=== PATIENT | male | born 1955 | race Caucasian/White ===

== ENCOUNTER 2020-01-04 10:53 | Inpatient (IN) ==
[2020-01-04] MEDS ORDERED: HEPARIN SOD (PORCINE) 1000 UNIT/ML 10 ML VIAL IV ONE (11:17)
[2020-01-04] MEDS ORDERED: SODIUM CHLORIDE 0.9% 1000ML 1,000 ML IV PRN (11:17)
--- NOTE | 2020-01-04 11:24 | Emergency Department Note ---
Impression & Plan Bilateral lower extremity edema, Renal failure, Acute hyperkalemia ED Provider Note NAME: PELON MA AGE: 64 SEX: M : 1955 ARRIVES VIA: Walk-In INFORMANT: Patient, ED PROVIDER(S): Abhijit Guerra DO CHIEF COMPLAINT: Edema HPI: The patient is a 64-year-old male who presented to the emergency department for an evaluation of lower extremity edema. The patient has a history of end- stage renal disease. He has been noncompliant with his dialysis regimen. The patient presented to the emergency department at the request of his primary fisheries technician today because of ongoing worsening swelling in the legs and also questionable social situation at home. The patient was recommended by his fisheries technician to have daily dialysis for at least the next 3 to 4 days and then significant consideration for the patient being placed. Currently the patient does complain of cough. He does smoke 2 packs a day. He denies having any hemoptysis. He has no fever. He does complain of lower extremity edema as well as orthopnea. He also complains of dyspnea on exertion. Currently denies having any chest pain. He does still make urine "every couple days". He denies having any vomiting. ROS: See above HPI for pertinent positives & negatives. A total of 10 systems reviewed and were otherwise negative. PAST MEDICAL HISTORY: See Below PAST SURGICAL HISTORY: See Below FAMILY HISTORY: See Below SOCIAL HISTORY: See Below HOME MEDICATIONS: See Below ALLERGIES: See Below VITALS: See Below PHYSICAL EXAMINATION: GENERAL: The patient is frail appearing. He does not appear to be caring for himself. EYES: The conjunctivae are clear. The pupils are round and reactive. EARS, NOSE, MOUTH AND THROAT: The nose is without any evidence of any deformity. Mucous membranes are moist. Tongue is midline. NECK: The neck is nontender and supple. RESPIRATORY: Shallow respirations were noted. There are rales in the right lower extremity. Left lung was somewhat diminished CARDIOVASCULAR: Regular rate and rhythm noted there no murmurs rubs or gallops normal S1 normal S2. GASTROINTESTINAL: The abdomen is soft. Abdomen is nontender. MUSCULOSKELETAL/EXTREMITIES: There is no evidence of gross deformity full range of motion is noted in the hips and shoulders. SKIN: Skin was warm and dry. There was pedal edema bilaterally. NEUROLOGIC: Patient is awake alert and oriented x3. MEDICAL DECISION MAKING: The patient is a 64-year-old male who presented to the emergency department for an evaluation of lower extremity edema. The patient has a history of end-stage renal disease and has a history of dialysis. He was seen by his primary fisheries technician yesterday and had dialysis but they feel as though the patient has not doing well as an outpatient and may require an inpatient stay for daily dialysis. The patient himself was complaining of some difficulty breathing and lower extremity edema. On physical exam he does have rales throughout and I feel he is consistent with volume overload. I discussed the patient's laboratory and radiographic studies with him. [facility] They will evaluate the patient in the emergency department for further management and disposition. If we can get the patient in for dialysis today that would be ideal. The fisheries technician did call about the patient and states that they are familiar with him and the inpatient on-call fisheries technician is also aware that the patient is to be admitted. Triage Nursing notes reviewed. Prior medical records reviewed Vital Signs: reviewed and remarkable for no significant abnormalities Differential diagnosis: Infection, dehydration, metabolic abnormality, hypo/hyperglycemia, electrolyte disturbance, anemia, hypoxia, cardiac sources, intracerebral event, toxicologic, neurologic, as well as other pathologies. ER treatment provided: See below Diagnostics interpreted by me: ECG: EKG was obtained in the emergency department. My interpretation is normal sinus rhythm at 61 bpm. LVH was noted by voltage criteria. There is no ectopy. There was no change compared to a tracing done on January 03, 2020. Cardiac Monitoring: An order was placed for continuous cardiac monitoring. The monitor shows a rate of 82 bpm with sinus rhythm. Laboratory studies: As stated above and show below. Imaging studies: See below Consultation(s): 1120: I discussed this case with Ana who [facility] They will evaluate the patient in the emergency department for further management and disposition. Past Med/Surg History Medical History (Updated 01/04/20 @ 16:17 by Abhijit Guerra DO) Anemia Bilateral lower extremity edema Chronic back pain Chronic deep vein thrombosis (DVT) of calf muscle vein of left lower extremity not on eliquis anymore, stopped 09/2019 after aneusym rupture/repair, now on plavix ESRD on dialysis Hepatitis C not receiving treatment History of tobacco abuse History of traumatic brain injury Hypertension Seizure disorder Surgical History (Updated 01/04/20 @ 13:02 by Ana Romo PA-C) History of amputation of finger Chainsaw accident History of appendectomy History of fracture of left hip s/p ORIF 04/10/2019 History of repair of aneurysm of abdominal aorta using endovascular stent graft Dr. Javier took him to the OR urgently, underwent open exposure of right common femoral artery, open exposure left axillary artery, celiac artery stenting, superior mesenteric artery stenting, vascular embolization or occlusion, right internal iliac artery, extension of previous infrarenal aortic stent graft (I.e. delayed extension of EVAR) into right external iliac artery, and placement of tunneled dialysis catheter left common femoral vein on 09/17/[address] 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 History of sinus surgery Family History (Updated 01/04/20 @ 13:07 by Ana Romo PA-C) Mother Diabetes Father Coronary heart disease Other AAA (abdominal aortic aneurysm) Social History (Updated 01/04/20 @ 13:06 by Ana Romo PA-C) Smoking Status: Current every day smoker Tobacco Type: Cigarettes packs per day: 2; Years Smoked: 50; Cigarettes Per Day: 40; Hx Alcohol Use: Yes Alcohol Intake Frequency Comment: Currently abstinent of alcohol Hx Substance Use: Yes Preferred Language: Martiniquais Communication Ability: Effective Heel Sprayer First Required: No Beliefs That Will Affect Care: None Current Living Situation: Family Current Living Situation Comment: lives with brother and sister Other Information That Helps Us Care for You: No Feels Safe at Home: Yes Safety Concerns: Feels Safe At This Time Assistive Devices: None Allergies Allergies Allergy/AdvReac Type Severity Reaction Status Date / Time thiopental [From Pentothal] Allergy Severe Seizure Verified 01/04/20 14:10 Home Meds Home Medications Medication Instructions Recorded Confirmed B complex with C 20-folic acid 1 cap PO HS 01/03/20 01/04/20 [Wai Caps] amlodipine See Rx Instructions .ROUTE .COMPLEX 01/03/20 01/04/20 carvedilol 50 mg PO BID 01/03/20 01/04/20 clonidine HCl 0.3 mg PO Q12H 01/03/20 01/04/20 clopidogrel [Plavix] 75 mg PO QAM 01/03/20 01/04/20 ergocalciferol (vitamin D2) 1,250 mcg PO WK 01/03/20 01/04/20 [Vitamin D2] hydralazine 25 mg PO BID 01/03/20 01/04/20 levetiracetam [Keppra] 1,000 mg PO QDD 01/03/20 01/04/20 losartan 100 mg PO DAILY 01/03/20 01/04/20 phenytoin sodium extended 300 mg PO BID 01/03/20 01/04/20 [Dilantin Extended] rosuvastatin 40 mg PO QDD 01/03/20 01/04/20 sevelamer HCl 800 mg PO TIDM 01/03/20 01/04/20 Results & Data (ED) Vital Signs Vital Signs - 24 hr 01/04/20 10:59 01/04/20 11:15 01/04/20 11:17 Temperature 36.9 C Temperature Source Oral Pulse Rate 73 64 62 Pulse Rate from SpO2 Sensor 65 62 Pulse Rhythm Regular Pulse Strength Normal Respiratory Rate 20 17 23 Respiratory Effort / Characteristics Non-Labored Spontaneous Respiratory Depth Normal Respiratory Pattern Regular Blood Pressure 120/71 107/62 Blood Pressure Mean 87 66 Blood Pressure Position Sitting Pulse Oximetry 95 98 96 Oxygen Delivery Method Room Air Room Air Sepsis Recent Fever Within 48 Hours No Sepsis New/Unexplained Change in Mental Status No Sepsis Action Taken by Nursing No Action Required 01/04/20 11:20 01/04/20 11:30 Temperature Temperature Source Pulse Rate 64 62 Pulse Rate from SpO2 Sensor 63 62 Pulse Rhythm Pulse Strength Respiratory Rate 17 18 Respiratory Effort / Characteristics Respiratory Depth Respiratory Pattern Blood Pressure 124/72 Blood Pressure Mean 90 Blood Pressure Position Pulse Oximetry 97 96 Oxygen Delivery Method Sepsis Recent Fever Within 48 Hours Sepsis New/Unexplained Change in Mental Status Sepsis Action Taken by Care Home Medications Current Medication List: was personally reviewed by me Laboratory Data Attestation: I reviewed the patient's lab results. Result diagrams: 01/04/20 11:27 01/04/20 11:27 Lab Results 01/04/20 01/04/20 01/04/20 Range/Units 11:27 11:27 11:27 WBC 7.29 (4.8-10.8) K/uL RBC 2.63 L (4.7-6.1) M/uL Hgb 8.7 L (14.0-18.0) g/dL Hct 25.6 L (42-52) % MCV 97.3 (80-100) fL MCH 33.1 (25-34) pg MCHC 34.0 (32-36) g/dL RDW Std Deviation 52.1 H (36.4-46.3) fL RDW Coeff of Afsaneh 15.0 H (11.5-14.5) % Plt Count 146 (130-400) K/uL MPV 9.2 (7.4-10.4) fL Immature Gran % (Auto) 0.3 % Neut % (Auto) 63.2 % Lymph % (Auto) 18.0 % [place] % (Auto) 13.3 % Eos % (Auto) 4.5 % Baso % (Auto) 0.7 % Neut # (Auto) 4.61 (1.4-6.5) K/uL Lymph # (Auto) 1.31 (1.2-3.4) K/uL [place] # (Auto) 0.97 H (0.11-0.59) K/uL Eos # (Auto) 0.33 (0-0.5) K/uL Baso # (Auto) 0.05 (0-0.2) K/uL Immature Gran # (Auto) 0.02 (0.00-0.02) K/uL PT 12.6 H (9.0-12.0) Seconds INR 1.2 H (0.9-1.1) Sodium 137 (136-145) mmol/L Potassium 5.2 H D (3.5-5.1) mmol/L Chloride 102 (98-107) mmol/L Carbon Dioxide 26 (21-32) mmol/L Anion Gap 9.0 (3-11) BUN 46 H (7-18) mg/dl Creatinine 5.16 H* D (0.6-1.4) mg/dl Est Cr Clr Drug Dosing 13.5 ml/min Est GFR ( Amer) 12.7 Est GFR (Non-Af Amer) 11.0 BUN/Creatinine Ratio 8.9 L (10-20) Glucose 93 (70-99) mg/dl Calcium 8.9 (8.5-10.1) mg/dl Magnesium 1.9 (1.8-2.4) mg/dl Total Bilirubin 0.3 (0.2-1) mg/dl AST 23 (15-37) U/L ALT 23 (12-78) U/L Alkaline Phosphatase 115 (45-117) U/L Troponin I < 0.015 (0-0.045) ng/ml Total Protein 6.5 (6.4-8.2) gm/dl Albumin 2.5 L (3.4-5.0) gm/dl Globulin 4.0 (2.5-4.0) gm/dl Albumin/Globulin Ratio 0.6 L (0.9-2) TSH 1.700 (0.300-4.500) uIu/ml Phenytoin (10-20) mcg/ml 01/04/20 Range/Units 11:27 WBC (4.8-10.8) K/uL RBC (4.7-6.1) M/uL Hgb (14.0-18.0) g/dL Hct (42-52) % MCV (80-100) fL MCH (25-34) pg MCHC (32-36) g/dL RDW Std Deviation (36.4-46.3) fL RDW Coeff of Afsaneh (11.5-14.5) % Plt Count (130-400) K/uL MPV (7.4-10.4) fL Immature Gran % (Auto) % Neut % (Auto) % Lymph % (Auto) % [place] % (Auto) % Eos % (Auto) % Baso % (Auto) % Neut # (Auto) (1.4-6.5) K/uL Lymph # (Auto) (1.2-3.4) K/uL [place] # (Auto) (0.11-0.59) K/uL Eos # (Auto) (0-0.5) K/uL Baso # (Auto) (0-0.2) K/uL Immature Gran # (Auto) (0.00-0.02) K/uL PT (9.0-12.0) Seconds INR (0.9-1.1) Sodium (136-145) mmol/L Potassium (3.5-5.1) mmol/L Chloride (98-107) mmol/L Carbon Dioxide (21-32) mmol/L Anion Gap (3-11) BUN (7-18) mg/dl Creatinine (0.6-1.4) mg/dl Est Cr Clr Drug Dosing ml/min Est GFR ( Amer) Est GFR (Non-Af Amer) BUN/Creatinine Ratio (10-20) Glucose (70-99) mg/dl Calcium (8.5-10.1) mg/dl Magnesium (1.8-2.4) mg/dl Total Bilirubin (0.2-1) mg/dl AST (15-37) U/L ALT (12-78) U/L Alkaline Phosphatase (45-117) U/L Troponin I (0-0.045) ng/ml Total Protein (6.4-8.2) gm/dl Albumin (3.4-5.0) gm/dl Globulin (2.5-4.0) gm/dl Albumin/Globulin Ratio (0.9-2) TSH (0.300-4.500) uIu/ml Phenytoin 19.9 (10-20) mcg/ml Administered Medications Heparin Sodium (Porcine) (Heparin Sod 5,000 Unit/0.5 Ml Vial) 5,000 units SQ Q8 NIELS Stop: 02/03/20 14:02 Last Admin: 01/04/20 14:51 Dose: Not Given Documented by: [id number] Imaging Data Radiologist's Impression: XR chest 1V portable CLINICAL HISTORY: weakness COMPARISON STUDY: 12/26/2019 FINDINGS: The patient remains hyperinflated. The heart is normal in size. There is aortic tortuosity/ectasia. There is a right-sided central venous catheter. There is no evidence of focal pulmonary consolidation. There is mild interstitial prominence without evidence of overt failure.[ IMPRESSION: 1. No evidence of focal pulmonary consolidation 2. Very subtle diffuse interstitial prominence. This could be secondary to chronic interstitial lung disease, an interstitial inflammatory process, or subtle pulmonary vascular congestion. ACT 112: Negative or not required by law. Electronically signed by: Josh Mcdonald M.D. 01/04/2020 11:44 AM Dictated: 01/04/20 1142 Transcribed: 01/04/20 1142 Blood Pressure Blood Pressure Findings: Normal blood pressure Discharge Plan Visit Data Chief Complaint: Leg Injury/Pain Stated Complaint: LEG PAIN IN BOTH LEGS ED Provider: Charlie,Abhijit R Discharge Problem: Bilateral lower extremity edema, Renal failure, Acute hyperkalemia Patient Disposition: Admitted As Inpatient Condition: Good Discharge Instructions Interventions: ED Discharge Assessment Last Done: 01/04/20 12:39 Discharge Problem: Renal failure Qualifiers: Renal failure chronicity: chronic Chronic kidney disease stage: on chronic dialysis Qualified Code(s): N18.6 - End stage renal disease
[2020-01-04 11:42] LABS: Basophils # (auto) 0.05 K/uL (0-0.2); Basophils % (auto) 0.7 %; Eosinophils # (auto) 0.33 K/uL (0-0.5); Eosinophils % (auto) 4.5 %; Hematocrit (blood only) 25.6 % (42-52); Hemoglobin 8.7 g/dL (14.0-18.0); Immature Granulocytes # (auto) 0.02 K/uL (0.00-0.02); Immature Granulocytes % (auto) 0.3 %; Lymphocytes # (auto) 1.31 K/uL (1.2-3.4); Mean Corpuscular Hemoglobin 33.1 pg (25-34); Mean Corpuscular Volume 97.3 fL (80-100); Mean Platelet Volume 9.2 fL (7.4-10.4); Monocytes # (auto) 0.97 K/uL (0.11-0.59); Monocytes % (auto) 13.3 %; Neutrophils # (auto) 4.61 K/uL (1.4-6.5); Neutrophils % (auto) 63.2 %; Platelet Count 146 K/uL (130-400); RDW Standard Deviation 52.1 fL (36.4-46.3); Red Blood Count 2.63 M/uL (4.7-6.1); White Blood Count 7.29 K/uL (4.8-10.8)
--- NOTE | 2020-01-04 11:45 | XRay Report ---
XR chest 1V portable CLINICAL HISTORY: weakness COMPARISON STUDY: 12/26/2019 FINDINGS: The patient remains hyperinflated. The heart is normal in size. There is aortic tortuosity/ ectasia. There is a right-sided central venous catheter. There is no evidence of focal pulmonary cons olidation. There is mild interstitial prominence without evidence of overt failure.[ IMPRESSION: 1. No evidence of focal pulmonary consolidation 2. Very subtle diffuse interstitial prominence. This could be secondary to chronic interstitial lung disease, an interstitial inflammatory process, or subtle pulmonary vascular congestion. ACT 112: Negative or not required by law. Electronically signed by: Josh Mcdonald M.D. 01/04/2020 11:44 AM
[2020-01-04 11:52] LABS: INR 1.2 (0.9-1.1); Prothrombin Time 12.6 Seconds (9.0-12.0)
[2020-01-04 12:18] LABS: Alanine Aminotransferase 23 U/L (12-78); Albumin Globulin Ratio 0.6 (0.9-2); Albumin Level 2.5 gm/dl (3.4-5.0); Alkaline Phosphatase 115 U/L (45-117); Aspartate Aminotransferase 23 U/L (15-37); BUN Creatinine Ratio 8.9 (10-20); Bilirubin,Total 0.3 mg/dl (0.2-1); Blood Urea Nitrogen 46 mg/dl (7-18); Calcium 8.9 mg/dl (8.5-10.1); Carbon Dioxide 26 mmol/L (21-32); Chloride 102 mmol/L (98-107); Creatinine Clr Calc Pharmacy 13.5 ml/min; Est GFR (African American) 12.7; Glucose 93 mg/dl (70-99); Magnesium 1.9 mg/dl (1.8-2.4); Potassium 5.2 mmol/L (3.5-5.1); Sodium 137 mmol/L (136-145); Total Protein 6.5 gm/dl (6.4-8.2); Troponin I < 0.015 ng/ml (0-0.045)
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
[2020-01-04] MEDS ORDERED: ACETAMINOPHEN 325 MG TAB PO PRN (14:03)
[2020-01-04] MEDS ORDERED: POLYETHYLENE (MIRALAX) 17 GM PACK PO PRN (14:03)
[2020-01-04] MEDS ORDERED: ONDANSETRON INJ 2 MG/ML 2 ML VIAL IV PRN (14:03)
[2020-01-04] MEDS: HEPARIN SOD 5,000 UNIT/0.5 ML VIAL SQ SCH ×2 (14:51→21:52)
[2020-01-04] MEDS: HEPARIN SOD (PORCINE) 1000 UNIT/ML 10 ML VIAL IV SCH ×3 (15:40→16:19)
[2020-01-04] MEDS: SEVELAMER HCL 800 MG TABLET PO SCH (17:09)
[2020-01-04] MEDS: ROSUVASTATIN CALCIUM 20 MG TAB PO SCH (17:09)
[2020-01-04] MEDS: levETIRAcetam 500 MG TAB PO SCH (17:09)
[2020-01-04] MEDS: cloNIDine HCL 0.3 MG TAB PO SCH (20:18)
[2020-01-04] MEDS: carvediloL 25 MG TAB PO SCH (20:18)
[2020-01-04] MEDS: PHENYTOIN SODIUM ER 100 MG CAP PO SCH (20:18)
[2020-01-04] MEDS: NEPHROCAPS PO SCH (20:18)
[2020-01-05] MEDS: HEPARIN SOD 5,000 UNIT/0.5 ML VIAL SQ SCH ×3 (05:48→20:38)
--- NOTE | 2020-01-05 06:01 | Electrocardiogram Report ---
Test Reason : Blood Pressure : / mmHG Vent. Rate : 061 BPM Atrial Rate : 061 BPM P-R Int : 140 ms QRS Dur : 090 ms QT Int : 476 ms P-R-T Axes : 070 053 072 degrees QTc Int : 479 ms Normal sinus rhythm When compared with ECG of 03-JAN-2020 16:31, No significant change Confirmed by Arvind Cullen ([id number]) on 01/05/2020 6:01:32 AM Referred By: Confirmed By:Arvind Cullen
[2020-01-05 06:39] LABS: Hematocrit (blood only) 24.5 % (42-52); Hemoglobin 8.2 g/dL (14.0-18.0); Mean Corpuscular Hemoglobin 32.7 pg (25-34); Mean Corpuscular Hgb Conc 33.5 g/dL (32-36); Mean Corpuscular Volume 97.6 fL (80-100); Platelet Count 121 K/uL (130-400); RDW Standard Deviation 52.8 fL (36.4-46.3); Red Blood Count 2.51 M/uL (4.7-6.1)
[2020-01-05 07:32] LABS: BUN Creatinine Ratio 7.7 (10-20); Calcium 8.6 mg/dl (8.5-10.1); Creatinine Clr Calc Pharmacy 15.6 ml/min; Est GFR (African American) 13.6; Est GFR (Non-African American) 11.7; Magnesium 1.7 mg/dl (1.8-2.4); Potassium 4.7 mmol/L (3.5-5.1)
[2020-01-05] MEDS ORDERED: SODIUM CHLORIDE 0.9% 1000ML 1,000 ML IV PRN (07:56)
[2020-01-05] MEDS ORDERED: EPOETIN ALFA 20,000 UNITS/ML VIAL IV SCH (07:56)
[2020-01-05] MEDS ORDERED: HEPARIN SOD (PORCINE) 1000 UNIT/ML 10 ML VIAL IV SCH (07:56)
[2020-01-05] MEDS: SEVELAMER HCL 800 MG TABLET PO SCH ×3 (08:30→17:01)
[2020-01-05] MEDS: cloNIDine HCL 0.3 MG TAB PO SCH ×2 (08:34→20:38)
[2020-01-05] MEDS: carvediloL 25 MG TAB PO SCH ×2 (08:34→20:36)
[2020-01-05 09:11] LABS: Phosphorus 4.3 mg/dl (2.5-4.9)
[2020-01-05] MEDS: HEPARIN SOD (PORCINE) 1000 UNIT/ML 10 ML VIAL IV SCH ×3 (10:00→12:00)
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
[2020-01-05] MEDS: LOSARTAN POTASSIUM 50 MG TAB PO SCH (13:23)
[2020-01-05] MEDS: CLOPIDOGREL BISULFATE 75 MG TAB PO SCH (13:23)
[2020-01-05] MEDS: PHENYTOIN SODIUM ER 100 MG CAP PO SCH ×2 (13:23→20:37)
[2020-01-05] MEDS: AMLODIPINE BESYLATE 5 MG TAB PO SCH (13:24)
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
[2020-01-05] MEDS: levETIRAcetam 500 MG TAB PO SCH (17:01)
[2020-01-05] MEDS: ROSUVASTATIN CALCIUM 20 MG TAB PO SCH (17:01)
--- NOTE | 2020-01-05 20:09 | Dialysis Progress Note ---
Date of Service January 05, 2020 Assessment & Plan (1) ESRD on dialysis: ESRD on MWF HD at [place]; needs longer txs and daily dialysis to optimize volume . chemistries ok -daily HD > had HD yesterday and today; plan tomorrow as well; tolerated 4L off todaay -cont dialysis diet -pls eval for rehab and or placement >> concerns about family's ability to care for pt expressed at dialysis unit (2) Volume overload: daliy dialysis for moment; -teaching about FR -follow bp/ exam to determin vol status (3) Anemia due to end stage renal disease: got epo today; monitor q 48 hrs hgb Admission and Anticipated Discharge Date Admission Date: January 04, 2020 Subjective seen on dialysis at about 0940; tolerating tx well. thick cough, he states chronic; edema better Review of Systems Review of Systems: All systems reviewed & are unremarkable except as noted in HPI & below Physical Exam Constitutional: well developed, + thin, + disheveled, cooperative and + malnourished Eyes: EOM intact bilaterally ENMT: Ears: no external ear abnormality Nose: no external nose abnormality Mouth: + dry oral mucous membranes Neck: no nuchal rigidity Respiratory: normal respiratory effort and + cough (thick) Auscultation: + diminished lung sounds and + rhonchi Cardiovascular: Rate/Rhythm: regular rate and regular rhythm Extremities: + edema (1-2+) Gastrointestinal (Abdomen): Inspection/Auscultation: normal bowel sounds Percussion/Palpation: abdomen soft; abdomen nontender Musculoskeletal: Extremities: strength 5/5 throughout Skin: no rashes, warm and dry + nail abnormality (clubbing) Psychiatric: Orientation: alert and oriented x 3 Speech: normal rate/rhythm/volume of speech Affect: + flat affect Insight: + limited i nsight Judgement: + limited judgement Results & Data ([place]) Vital Signs (Past 12 Hours) Vital Signs Temp Pulse Pulse Pulse Resp BP BP 01/05/20 18:58 37.4 C 76 20 166/85 H 01/05/20 16:36 36.7 C 76 18 165/83 H 01/05/20 16:00 86 01/05/20 13:40 37.1 C 76 175/99 H 01/05/20 12:40 66 181/103 H 01/05/20 12:20 78 176/94 H 01/05/20 12:00 82 171/97 H 01/05/20 11:40 73 167/111 H 01/05/20 11:20 66 171/106 H 01/05/20 11:00 70 184/95 H 01/05/20 10:40 70 163/102 H 01/05/20 10:20 74 166/96 H 01/05/20 10:00 75 167/82 H 01/05/20 09:40 77 162/81 H 01/05/20 09:20 76 173/92 H 01/05/20 09:03 76 180/93 H 01/05/20 08:56 37.3 C 81 Pulse Ox 01/05/20 18:58 93 01/05/20 16:36 93 01/05/20 16:00 01/05/20 13:40 01/05/20 12:40 01/05/20 12:20 01/05/20 12:00 01/05/20 11:40 01/05/20 11:20 01/05/20 11:00 01/05/20 10:40 01/05/20 10:20 01/05/20 10:00 01/05/20 09:40 01/05/20 09:20 01/05/20 09:03 01/05/20 08:56 (1) Volume overload Hypervolemia type: other Qualified Code(s): E87.79 - Other fluid overload
[2020-01-05] MEDS: NEPHROCAPS PO SCH (20:37)
[2020-01-06] MEDS: HEPARIN SOD 5,000 UNIT/0.5 ML VIAL SQ SCH ×3 (06:11→22:23)
[2020-01-06] MEDS: PHENYTOIN SODIUM ER 100 MG CAP PO SCH ×2 (08:00→20:32)
[2020-01-06] MEDS: CLOPIDOGREL BISULFATE 75 MG TAB PO SCH (08:01)
[2020-01-06] MEDS: AMLODIPINE BESYLATE 5 MG TAB PO SCH (08:01)
[2020-01-06] MEDS: cloNIDine HCL 0.3 MG TAB PO SCH ×2 (08:02→20:32)
[2020-01-06] MEDS: SEVELAMER HCL 800 MG TABLET PO SCH ×3 (08:02→16:41)
[2020-01-06] MEDS: carvediloL 25 MG TAB PO SCH ×2 (08:02→20:43)
[2020-01-06] MEDS: LOSARTAN POTASSIUM 50 MG TAB PO SCH (08:02)
[2020-01-06 08:12] LABS: Hematocrit (blood only) 26.1 % (42-52); Hemoglobin 8.7 g/dL (14.0-18.0); Mean Corpuscular Hemoglobin 32.2 pg (25-34); Mean Corpuscular Hgb Conc 33.3 g/dL (32-36); Mean Corpuscular Volume 96.7 fL (80-100); RDW Coefficient of Variation 14.9 % (11.5-14.5); RDW Standard Deviation 52.1 fL (36.4-46.3); White Blood Count 8.06 K/uL (4.8-10.8)
[2020-01-06 08:21] LABS: Basophils # (auto) 0.06 K/uL (0-0.2); Basophils % (auto) 0.7 %; Eosinophils # (auto) 0.49 K/uL (0-0.5); Eosinophils % (auto) 6.1 %; Immature Granulocytes # (auto) 0.01 K/uL (0.00-0.02); Immature Granulocytes % (auto) 0.1 %; Lymphocytes # (auto) 1.77 K/uL (1.2-3.4); Lymphocytes % (auto) 21.9 %; Mean Platelet Volume 9.4 fL (7.4-10.4); Monocytes # (auto) 1.09 K/uL (0.11-0.59); Monocytes % (auto) 13.5 %; Neutrophils # (auto) 4.66 K/uL (1.4-6.5); Neutrophils % (auto) 57.7 %; Platelet Count 103 K/uL (130-400)
[2020-01-06] MEDS ORDERED: HEPARIN SOD (PORCINE) 1000 UNIT/ML 10 ML VIAL IV ONE (08:37)
[2020-01-06] MEDS ORDERED: SODIUM CHLORIDE 0.9% 1000ML 1,000 ML IV PRN (08:37)
[2020-01-06 08:41] LABS: BUN Creatinine Ratio 7.1 (10-20); Calcium 9.3 mg/dl (8.5-10.1); Creatinine Clr Calc Pharmacy 17.4 ml/min; Est GFR (African American) 15.7; Est GFR (Non-African American) 13.6; Magnesium 1.9 mg/dl (1.8-2.4); Potassium 4.1 mmol/L (3.5-5.1)
[2020-01-06 08:42] LABS: Phosphorus 3.9 mg/dl (2.5-4.9)
[2020-01-06] MEDS: HEPARIN SOD (PORCINE) 1000 UNIT/ML 10 ML VIAL IV SCH ×2 (10:40→12:48)
--- NOTE | 2020-01-06 12:54 | Dialysis Progress Note ---
Date of Service January 06, 2020 Assessment & Plan (1) ESRD on dialysis: ESRD on MWF HD at [place]; needs longer txs and daily dialysis to optimize volume . chemistries ok -daily HD > plan tomorrow as well; tolerated 4L off yesterday; had bp meds this am >> will aim for 3L off as BP tolerates today -cont dialysis diet -pls eval for rehab and or placement >> concerns about family's ability to care for pt expressed at dialysis unit (2) Volume overload: daliy dialysis for moment; -teaching about FR -follow bp/ exam to determin vol status (3) Anemia due to end stage renal disease: got epo today; monitor q 48 hrs hgb Admission and Anticipated Discharge Date Admission Date: January 04, 2020 Subjective no c/o uncontrolled pain; ongoing cough; edema improving; no sob, no n/v Review of Systems Review of Systems: All systems reviewed & are unremarkable except as noted in HPI & below Physical Exam Constitutional: well developed, + thin, + disheveled, cooperative and + malnourished Eyes: EOM intact bilaterally ENMT: Ears: no external ear abnormality Nose: no external nose abnormality Mouth: + dry oral mucous membranes Neck: no nuchal rigidity Respiratory: normal respiratory effort and + cough (thick) Auscultation: + diminished lung sounds and + rhonchi Cardiovascular: Rate/Rhythm: regular rate and regular rhythm Extremities: + edema (trace -1+) Gastrointestinal (Abdomen): Inspection/Auscultation: normal bowel sounds Percussion/Palpation: abdomen soft; abdomen nontender Musculoskeletal: Extremities: strength 5/5 throughout Skin: no rashes, warm and dry + nail abnormality (clubbing) Psychiatric: Orientation: alert and oriented x 3 Speech: normal rate/rhy thm/volume of speech Affect: + flat affect Insight: + limited insight Judgement: + limited judgement Results & Data ([facility]) Vital Signs (Past 12 Hours) Vital Signs Temp Pulse Pulse Pulse Resp BP BP 01/06/20 12:07 37.1 C 69 121/65 01/06/20 11:20 69 108/68 01/06/20 11:00 73 106/62 01/06/20 10:40 80 115/64 01/06/20 10:20 69 123/63 01/06/20 10:00 72 117/65 01/06/20 09:40 71 131/69 01/06/20 09:20 74 116/63 01/06/20 09:14 36.5 C 90 01/06/20 07:08 65 01/06/20 03:35 36.5 C 71 20 167/85 H Pulse Ox 01/06/20 12:07 01/06/20 11:20 01/06/20 11:00 01/06/20 10:40 01/06/20 10:20 01/06/20 10:00 01/06/20 09:40 01/06/20 09:20 01/06/20 09:14 01/06/20 07:08 01/06/20 03:35 92 Laboratory Results 01/06/20 07:53 01/06/20 07:53 (1) Volume overload Hypervolemia type: other Qualified Code(s): E87.79 - Other fluid overload
[2020-01-06] MEDS: ROSUVASTATIN CALCIUM 20 MG TAB PO SCH (16:40)
[2020-01-06] MEDS: levETIRAcetam 500 MG TAB PO SCH (16:40)
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
[2020-01-06] MEDS: NEPHROCAPS PO SCH (20:33)
[2020-01-07] MEDS: HEPARIN SOD 5,000 UNIT/0.5 ML VIAL SQ SCH ×3 (05:23→20:12)
[2020-01-07] MEDS ORDERED: SODIUM CHLORIDE 0.9% 1000ML 1,000 ML IV PRN (07:37)
[2020-01-07] MEDS ORDERED: HEPARIN SOD (PORCINE) 1000 UNIT/ML 10 ML VIAL IV ONE (07:37)
[2020-01-07] MEDS ORDERED: EPOETIN ALFA 20,000 UNITS/ML VIAL IV ONE (08:00)
[2020-01-07] MEDS: CLOPIDOGREL BISULFATE 75 MG TAB PO SCH (09:07)
[2020-01-07] MEDS: PHENYTOIN SODIUM ER 100 MG CAP PO SCH ×2 (09:07→20:11)
[2020-01-07] MEDS: SEVELAMER HCL 800 MG TABLET PO SCH ×3 (09:07→17:29)
--- NOTE | 2020-01-07 10:25 | Dialysis Progress Note ---
Date of Service January 07, 2020 Assessment & Plan (1) ESRD on dialysis: ESRD on MWF HD at [facility]; needs longer txs and daily dialysis to optimize volume . chemistries ok -daily HD > plan tomorrow as well; tolerated 4L off yesterday; had bp meds this am >> will aim for 3.5L off as BP tolerates today -cont dialysis diet -pls eval for rehab and or placement >> concerns about family's ability to care for pt expressed at dialysis unit >>reached out to case mgt >> RECOMMEND calling HD unit TODAY to make tentative plans for friday tx as OP if no IP rehab/SNF or asst living admission is planned (2) Volume overload: daily dialysis for moment; -teaching about FR -follow bp/ exam to determine vol status (3) Anemia due to end stage renal disease: for epo today; monitor q 48 hrs hgb Admission and Anticipated Discharge Date Admission Date: January 04, 2020 Subjective no interval events; no sob, no uncontrolled pain; seen on HD 1025 Review of Systems Review of Systems: All systems reviewed & are unremarkable except as noted in HPI & below Physical Exam Constitutional: well developed, + thin, + disheveled, cooperative and + malnourished Eyes: EOM intact bilaterally ENMT: Ears: no external ear abnormality Nose: no external nose abnormality Mouth: + dry oral mucous membranes Neck: no nuchal rigidity Respiratory: normal respiratory effort and + cough (thick and frequent) Auscultation: + diminished lung sounds Cardiovascular: Rate/Rhythm: regular rate and regular rhythm Extremities: + edema (trace) Gastrointestinal (Abdomen): Inspection/Auscultation: normal bowel sounds Percussion/Palpation: abdomen soft; abdomen nontender Musculoskeletal: Extremities: strength 5/5 throughout Skin: no rashes, warm and dry + nail abnormality (clubbing) Psychiatric: Orientation: alert and oriented x 3 Speech: normal rate/rhythm/volume of speech Affect: + flat affect Insight: + limited insight Judgement: + limited judgement Results & Data ([facility]) Vital Signs (Past 12 Hours) Vital Signs Temp Pulse Pulse Pulse Resp BP Pulse Ox 01/07/20 07:55 37.2 C 64 20 187/90 H 93 01/07/20 04:06 36.6 C 81 18 133/79 96 01/07/20 00:57 78 01/06/20 22:41 36.7 C 71 20 146/76 H 94 Laboratory Results 01/06/20 07:53 01/06/20 07:53 (1) Volume overload Hypervolemia type: other Qualified Code(s): E87.79 - Other fluid overload
[2020-01-07] MEDS: HEPARIN SOD (PORCINE) 1000 UNIT/ML 10 ML VIAL IV SCH ×2 (10:41→10:42)
[2020-01-07] MEDS: cloNIDine HCL 0.3 MG TAB PO SCH ×2 (14:25→20:09)
[2020-01-07] MEDS: AMLODIPINE BESYLATE 5 MG TAB PO SCH (14:25)
[2020-01-07] MEDS: LOSARTAN POTASSIUM 50 MG TAB PO SCH (14:26)
[2020-01-07] MEDS: carvediloL 25 MG TAB PO SCH ×2 (14:26→20:09)
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
[2020-01-07] MEDS: ROSUVASTATIN CALCIUM 20 MG TAB PO SCH (17:29)
[2020-01-07] MEDS: levETIRAcetam 500 MG TAB PO SCH (17:29)
[2020-01-07] MEDS: NEPHROCAPS PO SCH (20:11)
[2020-01-08] MEDS: HEPARIN SOD 5,000 UNIT/0.5 ML VIAL SQ SCH ×3 (05:20→20:49)
[2020-01-08] MEDS: PHENYTOIN SODIUM ER 100 MG CAP PO SCH ×2 (07:48→20:47)
[2020-01-08] MEDS: LOSARTAN POTASSIUM 50 MG TAB PO SCH (07:49)
[2020-01-08] MEDS: cloNIDine HCL 0.3 MG TAB PO SCH ×2 (07:49→20:46)
[2020-01-08] MEDS: SEVELAMER HCL 800 MG TABLET PO SCH ×3 (07:50→17:35)
[2020-01-08] MEDS: AMLODIPINE BESYLATE 5 MG TAB PO SCH (07:51)
[2020-01-08] MEDS: CLOPIDOGREL BISULFATE 75 MG TAB PO SCH (07:51)
[2020-01-08] MEDS: carvediloL 25 MG TAB PO SCH ×2 (07:52→20:47)
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
--- NOTE | 2020-01-08 15:51 | Progress Notes ---
DATE: 01/08/2020 NEPHROLOGY DIALYSIS NOTE SUBJECTIVE: The patient was seen during dialysis. He is tolerating it fairly well. Blood pressure now is normal, which is a significant change from before. Absolutely no edema. Catheter working pretty good. OBJECTIVE: VITAL SIGNS: Blood pressure 134/76, pulse rate 74, temperature 37.1, 94% on room air. HEENT: Mucous membrane moist. NECK: Supple. No jugular venous distention. CHEST: Bilateral clear to auscultation with occasional wheezing. CARDIOVASCULAR: S1, S2 regular. ABDOMEN: Soft, nontender. EXTREMITIES: Shows absolutely no edema. Catheter working fine. LABORATORY TESTS: From this morning was reviewed and shows no major electrolyte issue. Hemoglobin is 8.7, WBC 8, platelet count 103, BUN 31, creatinine 4.33, magnesium 1.9. ASSESSMENT AND PLAN: 1. End-stage renal disease on dialysis: At this point he is euvolemic. He can be discharged to rehabilitation any day. His next dialysis will be Friday . 2. Volume overload--- he does not have any now 3. Anemia due to end-stage renal disease: He did get erythropoietin yesterday. No need today. MTDD
[2020-01-08] MEDS: ROSUVASTATIN CALCIUM 20 MG TAB PO SCH (17:35)
[2020-01-08] MEDS: levETIRAcetam 500 MG TAB PO SCH (17:36)
[2020-01-08] MEDS: NEPHROCAPS PO SCH (20:48)
[2020-01-09] MEDS: HEPARIN SOD 5,000 UNIT/0.5 ML VIAL SQ SCH ×3 (06:01→21:16)
[2020-01-09] MEDS: PHENYTOIN SODIUM ER 100 MG CAP PO SCH ×2 (09:13→21:16)
[2020-01-09] MEDS: LOSARTAN POTASSIUM 50 MG TAB PO SCH (09:14)
[2020-01-09] MEDS: cloNIDine HCL 0.3 MG TAB PO SCH (09:14)
[2020-01-09] MEDS: carvediloL 25 MG TAB PO SCH ×2 (09:14→21:15)
[2020-01-09] MEDS: AMLODIPINE BESYLATE 5 MG TAB PO SCH (09:16)
[2020-01-09] MEDS: CLOPIDOGREL BISULFATE 75 MG TAB PO SCH (09:17)
[2020-01-09] MEDS: SEVELAMER HCL 800 MG TABLET PO SCH ×3 (09:17→17:48)
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
--- NOTE | 2020-01-09 16:23 | Progress Notes ---
DATE: 01/09/2020 NEPHROLOGY PROGRESS NOTE SUBJECTIVE: He had dialysis yesterday. He is now completely euvolemic. In fact, blood pressure is now running slightly lower than ideal. The patient feels good. OBJECTIVE: VITAL SIGNS: Blood pressure 99/62, pulse rate 64, temperature 37 degrees Celsius, 95% on room air. HEENT: Mucous membranes moist. NECK: Supple. No jugular venous distention. CHEST: Bilaterally clear to auscultation. CARDIOVASCULAR: S1, S2 regular. ABDOMEN: Soft, nontender. EXTREMITIES: Show no edema. ASSESSMENT AND PLAN: A 64-year-old male admitted with severe fluid overload and severe hypertension related with fluid overload. End-stage renal disease: He is completely euvolemic at this time, and with that, his blood pressure is no longer very high, we can cut down on significant medications. 1. Stop hydralazine. 2. Stop clonidine. 3. Decrease amlodipine to 10 mg daily. 4. His next dialysis will be on Friday at [facility].
[2020-01-09] MEDS: ROSUVASTATIN CALCIUM 20 MG TAB PO SCH (17:47)
[2020-01-09] MEDS: levETIRAcetam 500 MG TAB PO SCH (17:48)
[2020-01-09] MEDS: NEPHROCAPS PO SCH (21:16)
[2020-01-10 05:41] LABS: Hematocrit (blood only) 29.6 % (42-52); Hemoglobin 10.1 g/dL (14.0-18.0); Mean Corpuscular Hemoglobin 33.1 pg (25-34); Mean Corpuscular Hgb Conc 34.1 g/dL (32-36); RDW Coefficient of Variation 15.6 % (11.5-14.5); RDW Standard Deviation 53.1 fL (36.4-46.3); Red Blood Count 3.05 M/uL (4.7-6.1)
[2020-01-10] MEDS: HEPARIN SOD 5,000 UNIT/0.5 ML VIAL SQ SCH ×2 (05:47→12:53)
[2020-01-10 06:02] LABS: Basophils # (auto) 0.05 K/uL (0-0.2); Basophils % (auto) 0.6 %; Eosinophils # (auto) 0.47 K/uL (0-0.5); Eosinophils % (auto) 5.8 %; Immature Granulocytes # (auto) 0.01 K/uL (0.00-0.02); Immature Granulocytes % (auto) 0.1 %; Lymphocytes # (auto) 1.75 K/uL (1.2-3.4); Lymphocytes % (auto) 21.6 %; Mean Platelet Volume 10.1 fL (7.4-10.4); Monocytes # (auto) 0.93 K/uL (0.11-0.59); Monocytes % (auto) 11.5 %; Neutrophils # (auto) 4.89 K/uL (1.4-6.5); Neutrophils % (auto) 60.4 %; Platelet Count 92 K/uL (130-400); Platelet Estimate Decreased (Normal); RBC Morphology Unremarkable
[2020-01-10 06:17] LABS: BUN Creatinine Ratio 8.1 (10-20); Creatinine Clr Calc Pharmacy 10.9 ml/min; Est GFR (African American) 9.6; Est GFR (Non-African American) 8.3; Potassium 4.3 mmol/L (3.5-5.1)
[2020-01-10] MEDS: carvediloL 25 MG TAB PO SCH (08:22)
[2020-01-10] MEDS: CLOPIDOGREL BISULFATE 75 MG TAB PO SCH (08:22)
[2020-01-10] MEDS: SEVELAMER HCL 800 MG TABLET PO SCH ×2 (08:22→12:54)
[2020-01-10] MEDS: LOSARTAN POTASSIUM 50 MG TAB PO SCH (08:22)
[2020-01-10] MEDS: PHENYTOIN SODIUM ER 100 MG CAP PO SCH (08:23)
[2020-01-10] MEDS ORDERED: ERGOCALCIFEROL 50,000 UNITS CAP PO SCH (09:00)
[2020-01-10] MEDS ORDERED: AMLODIPINE BESYLATE 5 MG TAB PO SCH (09:00)
[2020-01-10] MEDS ORDERED: cloNIDine HCL 0.1 MG TAB PO SCH (10:30)
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
== END 2020-01-10 15:12 | DRG 640 ==
LOC: ED 10:53 → SUATTDRO 11:35 → 2N 11:35